=== PATIENT | female | born 1965 | race Hispanic/Latino ===

== ENCOUNTER 2017-05-11 09:30 | Inpatient (IN) | payer BC ==
[~2017-05-11] VITALS: Ht 175.3 cm; Wt 98.9 kg
[2017-05-11 12:27] VITALS: BP 117/54
[2017-05-11 12:49] LABS: BASOPHILS % (AUTO) 0.9 % (0.0-5.0); EOSINOPHILS % (AUTO) 0.8 % (0.0-8.0); HEMATOCRIT 37.6 % (36-48); LYMPHOCYTES % (AUTO) 22.1 % (21.0-51.0); MEAN CORPUSCULAR HEMOGLOBIN 30.6 pg (27.0-33.0); MEAN CORPUSCULAR HGB CONC 34.6 g/dL (32.0-36.0); MEAN CORPUSCULAR VOLUME 88.6 fL (79-99); NEUTROPHILS % (AUTO) 70.2 % (40.0-77.0); PLATELET COUNT (AUTO) 231 K/uL (130-400); RED BLOOD CELL COUNT(AUTO) 4.25 MIL/uL (4.00-5.50); RED CELL DISTRIBUTION WIDTH 14.3 % (11.0-15.5); WHITE BLOOD COUNT (AUTO) 7.1 K/uL (4.8-10.8)
[2017-05-11 13:02] LABS: CREATININE 0.6 mg/dL (0.5-1.5); POTASSIUM 3.9 mmol/L (3.5-5.1)
[2017-05-11] MEDS ORDERED: METF500T6 PO (13:12)
[2017-05-11] MEDS ORDERED: OLME1TAB9 PO (13:12)
[2017-05-11] MEDS ORDERED: CETI10CA5 PO (13:12)
[2017-05-11] MEDS ORDERED: IRON1CAP32 PO (13:12)
[2017-05-11] MEDS ORDERED: LACTATED RINGERS 1000ML 1,000 ML IV SCH (13:45)
[2017-05-11] MEDS ORDERED: CEFAZOLIN 3GM /D5W 100ML 100 ML IV SCH (13:45)
[2017-05-11] MEDS ORDERED: CALDOLOR 800MG+NS 250ML 250 ML IV SCH (13:45)
[2017-05-12] VITALS (20 sets, daily range): BP systolic 106–140; BP diastolic 55–77
[2017-05-12] MEDS ORDERED: SODIUM CHLORIDE 0.9% 1000ML 1,000 ML IV ONE (08:42)
[2017-05-12] MEDS ORDERED: MIDAZOLAM HCL 1 MG/ML 2ML VIAL ONE (08:43)
[2017-05-12] MEDS ORDERED: PROPOFOL 10 MG/ML 20ML VIAL IV ONE (08:43)
[2017-05-12] MEDS: CEFAZOLIN SODIUM 1 GM VIAL ONE ×2 (08:43→08:45)
[2017-05-12] MEDS ORDERED: FENTANYL CITRATE PF 50 MCG/1 ML 5ML AMP IV ONE (08:43)
[2017-05-12] MEDS ORDERED: ROCURONIUM BROMIDE 10MG/1ML 5ML VL ONE ×2 (08:55→10:14)
[2017-05-12] MEDS ORDERED: GLYCOPYRROLATE 0.2 MG/ML 5 ML VIAL ONE (08:55)
[2017-05-12] MEDS ORDERED: NEOSTIGMINE METHYLSULFATE 1MG/ML IV ONE (08:55)
[2017-05-12] MEDS ORDERED: METOCLOPRAMIDE 10 MG/2 ML VIAL ONE ×2 (10:14→12:44)
[2017-05-12] MEDS ORDERED: SUCCINYLCHOLINE CHLORIDE 20 MG/ML 10 ML VIAL ONE (10:14)
[2017-05-12] MEDS ORDERED: FENTANYL CITRATE PF 50 MCG/1 ML 2ML VIAL ONE ×2 (11:09→12:46)
[2017-05-12] MEDS ORDERED: EPHEDRINE SULFATE 50 MG/ML AMPULE ONE (11:29)
[2017-05-12] MEDS ORDERED: NEOMY SULF/BACITRAC ZN/POLY OINT 30GM TUBE TP ONE (12:23)
[2017-05-12] MEDS ORDERED: ONDANSETRON HCL MDV 20ML 2 MG/ML VIAL ONE (12:43)
[2017-05-12] MEDS ORDERED: PROMETHAZINE HCL 25 MG/ML 1ML AMPULE IM PRN (12:45)
[2017-05-12] MEDS ORDERED: CYCLOBENZAPRINE HCL 10 MG TABLET PO PRN (12:45)
[2017-05-12] MEDS ORDERED: MEPERIDINE-PF 25 MG/ML SYG ONE (13:02)
[2017-05-12] MEDS: PROMETHAZINE HCL 25 MG/ML 1ML AMPULE IM PRN ×2 (14:07→17:43)
[2017-05-12] MEDS: MEPERIDINE-PF 75 MG/ML SYG IM PRN ×2 (14:11→17:44)
[2017-05-12] MEDS: CEFOXITIN SODIUM 1 GM VIAL IV SCH (20:37)
[2017-05-12] MEDS: SODIUM CHLORIDE 0.9% 1000ML 1,000 ML IV SCH (20:38)
[2017-05-12] MEDS: CALDOLOR 800MG+NS 250ML 250 ML IVPB SCH (21:24)
[2017-05-13 03:42] VITALS: BP 111/54
[2017-05-13] MEDS: PROMETHAZINE HCL 25 MG/ML 1ML AMPULE IM PRN (03:42)
[2017-05-13] MEDS: MEPERIDINE-PF 75 MG/ML SYG IM PRN (03:42)
[2017-05-13] MEDS: CEFOXITIN SODIUM 1 GM VIAL IV SCH ×2 (04:33→13:59)
[2017-05-13] MEDS: SODIUM CHLORIDE 0.9% 1000ML 1,000 ML IV SCH ×2 (04:36→09:07)
[2017-05-13] MEDS: CALDOLOR 800MG+NS 250ML 250 ML IVPB SCH (05:01)
[2017-05-13 06:55] LABS: HEMATOCRIT 28.5 % (36-48); MEAN CORPUSCULAR HEMOGLOBIN 30.6 pg (27.0-33.0); MEAN CORPUSCULAR HGB CONC 34.4 g/dL (32.0-36.0); MEAN CORPUSCULAR VOLUME 89.1 fL (79-99); PLATELET COUNT (AUTO) 189 K/uL (130-400); WHITE BLOOD COUNT (AUTO) 10.6 K/uL (4.8-10.8)
[2017-05-13 07:35] VITALS: BP 121/72
[2017-05-13] MEDS: DOCUSATE SODIUM 100 MG CAP PO PRN ×2 (08:49→21:34)
[2017-05-13] MEDS: METFORMIN HCL 500 MG TABLET PO SCH (08:50)
[2017-05-13] MEDS: BENICAR HCT PO SCH (08:51)
[2017-05-13] MEDS: ACETAMINOPHEN-CODEINE 300/30MG TAB PO PRN ×2 (08:55→15:47)
[2017-05-13] MEDS: MAGNESIUM CITRATE 296 ML SOLUTION PO SCH (09:32)
[2017-05-13 11:21] VITALS: BP 136/56
[2017-05-13] MEDS: IBUPROFEN 800 MG TAB PO SCH ×2 (13:51→20:47)
[2017-05-13 15:34] VITALS: BP 149/84
[2017-05-13 20:00] VITALS: BP 146/66
[2017-05-13] MEDS: SIMETHICONE 80 MG TAB.CHEW PO PRN (21:34)
[2017-05-13 23:20] VITALS: BP 120/63
[2017-05-14 04:01] VITALS: BP 134/61
[2017-05-14] MEDS: IBUPROFEN 800 MG TAB PO SCH ×2 (04:06→12:54)
[2017-05-14 07:30] VITALS: BP 135/70
[2017-05-14] MEDS: SIMETHICONE 80 MG TAB.CHEW PO PRN (08:48)
[2017-05-14] MEDS: METFORMIN HCL 500 MG TABLET PO SCH (08:48)
[2017-05-14] MEDS: DOCUSATE SODIUM 100 MG CAP PO PRN (08:48)
[2017-05-14] MEDS: BENICAR HCT PO SCH (09:00)
[2017-05-14] MEDS: MAGNESIUM CITRATE 296 ML SOLUTION PO SCH (09:00)
[2017-05-14] MEDS: SODIUM CHLORIDE 0.9% 1000ML 1,000 ML IV SCH (12:36)
[2017-05-14 12:44] VITALS: BP 132/67
[2017-05-14] MEDS: CEFOXITIN SODIUM 1 GM VIAL IV SCH (12:45)
== END 2017-05-14 15:15 | disposition home or self-care (01) | DRG 742 ==
LOC: EDSTATUS 09:30 → DAHIP 05-12 06:49 → WSH 05-12 13:40
PROVIDERS: ADMIT Obstetrics & Gynecology; ATTEND Obstetrics & Gynecology
PROC: 0UT90ZZ Resection of Uterus, Open Approach (ICD-10-PCS; principal; 2017-05-12 08:39)
PROC: 0UBG0ZZ Excision of Vagina, Open Approach (ICD-10-PCS; 2017-05-12 08:39)
DX: D25.9 Leiomyoma of uterus, unspecified (principal); N82.3 Fistula of vagina to large intestine; E66.01 Morbid (severe) obesity due to excess calories; E11.9 Type 2 diabetes mellitus without complications; I10 Essential (primary) hypertension; D64.9 Anemia, unspecified; Z98.51 Tubal ligation status; Z68.32 Body mass index [BMI] 32.0-32.9, adult; Z28.21 Immunization not carried out because of patient refusal
CPT/HCPCS: 36415; 80048; 82948; 84703; 85025; 85027; 86850; 86900; 86901; 88304; 88305; A4218; A4344; J0330; J0690; J0694; J1741; J2175; J2250; J2550; J2704; J2710; J2765; J3010; J3490; J7030; J7120